=== PATIENT | female | born 1995 | race African-American/Black ===

== ENCOUNTER → 2018-04-08 | Day surgery (SDC) | payer BC ==
[~2018-04-08] MED LIST: ACETAMINOPHEN 1000 MG/100 ML IV ONE; ALLEGRA D PO; BUPIVACAINE 0.25% 30ML SDV INJ ONE; DEXAMETHASONE SOD PHOS INJ 4 MG/ML VIAL ONE; FENTANYL CITRATE/PF 100MCG/2 ML INJ ONE; FLONASE; GLYCOPYRROLATE INJ 1MG/ 5 ML SYR ONE; LIDOCAINE HCL 2% LOCAL INJ 5 ML SDV VIAL INJ ONE; MELATONIN PO; MIDAZOLAM HCL 2 MG/2 ML VIAL ONE; NEOSTIGMINE 5 MG/5ML SYR ONE; ONDANSETRON HCL INJ 2 MG/ML VIAL ONE; OXYMETAZOLINE HCL 0.05% NAS 1 SPRAY BTL ONE; PROPOFOL IV EMULSION 10 MG/ML 20 ML VIAL ONE; ROCURONIUM BROMIDE 10 MG/ML 5ML VIAL ONE; SEVOFLURANE INHAL SOLN 250 ML PEN BTL ONE; SUCCINYLCHOLINE 200 MG/10 ML SYR ONE; VITAMIN B-12 PO; VITAMIN D PO
--- NOTE | 2018-04-08 08:35 | Operative Report ---
DATE OF PROCEDURE: April 08, 2018 PREOPERATIVE DIAGNOSES 1. Tonsilliths. 2. Chronic adenotonsillitis. 3. Adenotonsillar hypertrophy. POSTOPERATIVE DIAGNOSES 1. Tonsilliths. 2. Chronic adenotonsillitis. 3. Adenotonsillar hypertrophy. PROCEDURE: Tonsillectomy and adenoidectomy. SIGNIFICANT FINDINGS: Tonsils 3+/3+ and cryptic. Adenoids are mildly to moderately enlarged. ANESTHESIA: General endotracheal anesthesia. SPECIMENS REMOVED: Tonsils (adenoids were coblated). ESTIMATED BLOOD LOSS: Less than 1 mL. COMPLICATIONS: None. INDICATIONS: Patient is a 22-year-old female with greater than 4 years history of tonsilliths, as well as 4-5 tonsillar infections per year treated maximally with multiple courses of antibiotics. Each throat infection manifests as throat pain, [id number]-[id number] tonsils, which improve temporarily with antibiotics. On examination, her tonsils are 3+/3+ and cryptic bilaterally. She is scheduled for tonsillectomy and adenoidectomy for the treatment of tonsilliths, chronic adenotonsillitis and adenotonsillar hypertrophy. Risks and complications of the procedures were thoroughly discussed with the patient, and the include infection, bleeding, scarring, failure to improve. need for additional operations, persistent tonsilliths, persistent throat infections, damage to teeth, gums, tongue, and lips, chronic throat pain, numbness of the tongue, inability to taste, leakage of fluid through the nose when drinking liquids, scarring of the pharynx resulting in permanent worse nasal obstruction, damage to eustachian tube orifices causing middle ear fluid and hearing loss, need for blood transfusions, damage to surrounding nerves, blood vessels, and muscles. She fully understands and gives consent. PROCEDURE: Patient was taken to the operating room and placed supine on the operating table where general anesthesia was achieved through orotracheal intubation. Eyes were taped. Shoulder roll was placed. The table was turned 90 degrees with the head toward the surgeon. Head and body were draped. Elly-Robinson mouth gag was inserted without difficulty and placed in suspension on a Dominguez stand. There was no evidence of bifid uvula, diastasis of the muscular uvulae or a notched hard palate. Red rubber catheters were then inserted into the nose and brought out through the mouth to retract the soft palate. The left tonsil was grasped with a tonsillar Allis clamp, and was removed with the [employer]throCare Coblator on a setting of 6 on cut mode taking care to stay right on the capsule of the tonsil. The right tonsil was removed in the same way. Both tonsils were sent for pathology separately. Hemostasis was obtained with the Coblator on a setting of 3 on coag mode for both tonsillar beds. Examination of the nasopharynx revealed the adenoids to be mildly to moderately hypertrophied. The adenoids were removed with the ArthroCare Coblator on a setting of 8 on cut mode taking care to avoid trauma to the torus tubarius bilaterally. Hemostasis was obtained with the Coblator on a setting of 3 on coag mode. Following this, injection was 3 mL of 0.25% plain Marcaine was injected into the free edges of the anterior and posterior tonsillar pillars bilaterally. Thorough irrigation was then performed. Stomach contents were suctioned with an NG tube. The red rubber catheter and Elly-Robinson mouth gag were then removed without difficulty revealing no trauma to the teeth, gums, tongue, and lips. Patient was awakened in the operating room, extubated and taken to the recovery room in good condition. Job#: [id number] GILBERTO OCLE
[2018-04-08 09:15] VITALS: BP 132/74
== END | disposition home or self-care (01) ==
LOC: OR 05:21
PROVIDERS: ATTEND Otolaryngology
DX: J35.03 Chronic tonsillitis and adenoiditis (principal); F41.8 Other specified anxiety disorders; E66.01 Morbid (severe) obesity due to excess calories
CPT/HCPCS: 42821; 81025; 88304; J0131; J1100; J2001; J2250; J2405; J2704; J3490